=== PATIENT | female | born 1975 | race Two or more races ===

== ENCOUNTER 2024-12-12 19:15 | Inpatient (IN) | payer MEDICAID, OTHER ==
[~2024-12-12] VITALS: Ht 177.8 cm; Wt 92.1 kg
--- NOTE | 2024-12-12 19:20 | ED.PDOC ---
GI ASSESSMENT HPI Comments 49 y.o female coming from [facility], presents to the ED via EMS for a chief complaint of abdominal pain associated with nausea and vomiting that started this morning. Patient's report packet included a CTA with unremarkable results and EKG wnl. Patient was given Zofran, Morphone, Diludid, and a GI cocktail for symptoms during her hospital stay at [facility] (formerly [facility]). Patient was transported for higher level of care. EMS reports patient has been giving multiple different blood pressure medications at the hospital but pressure remains high with the last reading measuring 176/90. Patient reports similar abdominal pain one month ago in which she was seen at [facility] and diagnosed with an MA. Patient denies fever, chills, diarrhea, SOB. Patient does have a medical history of HTN and is compliant with medication intake. She reports quitting tobacco and alcohol one month ago s/p MA but is occasionally using marijuana. Time Seen by MD: 19:03 Reviewed Notes: Nurses Notes, Medications, Allergies Allergies: Coded Allergies: NO KNOWN ALLERGIES (Unverified , 12/12/24) Information Source: Patient, Emergency Med Personnel Mode of Arrival: EMS Timing: Hours Duration: Since onset Quality: Aching Vomitus: Hard Stool: Normal Severity: Moderate Recent: None Recent Hx of: None Pain Location: Diffuse Associated sign and symptoms: Nausea, Vomiting, Abdominal Pain Past Medical History PAST MEDICAL HISTORY: HTN Surgical History: Cholecystectomy, , Tubal Ligation SHOWCASE TRIMMER History: No Pertinent SHOWCASE TRIMMER History Family History Family History: Reviewed,noncontributory to illness Social History Smoker: Quit Less Than 1 Year, Cigarettes Alcohol: Denies ETOH Use Drugs: Marijuana Lives In: Home Constitutional: denies: chills, diaphoresis, fatigue, fever, malaise, sweats, weakness, others EENTM: denies: blurred vision, double vision, ear bleeding, ear discharge, ear drainage, ear pain, ear ringing, eye pain, eye redness, hearing loss, mouth pain, mouth swelling, nasal discharge, nose bleeding, nose congestion, nose pain, photophobia, tearing, throat pain, throat swelling, voice changes, others Respiratory: denies: cough, hemoptysis, orthopnea, SOB at rest, shortness of breath, SOB with excertion, stridor, wheezing, others Cardiovascular: denies: chest pain, dizzy spells, diaphoresis, Dyspnea on exertion, edema, irregular heart beat, left arm pain, lightheadedness, palpitations, PND, syncope, others Gastrointestinal: reports: abdominal pain, nausea, vomiting; denies: abdomen distended, blood streaked bowels, constipated, diarrhea, dysphagia, difficulty swallowing, hematemesis, melena, poor appetite, poor fluid intake, rectal bleeding, rectal pain, others Genitourinary: denies: abnormal vagina bleeding, burning, dyspareunia, dysuria, flank pain, frequency, hematuria, incontinence, pain, , vagina discharge, urgency, others Neurological: denies: dizziness, fainting, headache, left sided numbness, left sided weakness, numbness, paresthesia, pre-existing deficit, right sided numbness, right sided weakness, seizure, speech problems, tingling, tremors, weakness, others Musculoskeletal: denies: back pain, gout, joint pain, joint swelling, muscle pain, muscle stiffness, neck pain, others Integumetry: denies: bruises, change in color, change in hair/nails, dryness, laceration, lesions, lumps, rash, wounds, others Allergic/Immunocompromised: denies: Difficulty Healing, Frequent Infections, Hives, Itching, others Hematologic/Lymphatic: denies: anemia, blood clots, easy bleeding, easy bruising, swollen glands, others Endocrine: denies: excessive hunger, excessive sweating, excessive thirst, excessive urination, flushing, intolerance to cold, intolerance to heat, unexplained weight gain, unexplained weight loss, others Psychiatric: denies: anxiety, bipolar disorder, depression, hopeless, panic disorder, schizophrenia, sleepless, suicidal, others All Other Systems: Reviewed and Negative Physical Exam General Appearance: Moderate Distress HEENT: Normal ENT Inspection, Pharynx Normal, TMs Normal Neck: Full Range of Motion, Non-Tender, Normal, Normal Inspection Respiratory: Chest Non-Tender, Lungs Clear, No Accessory Muscle Use, No Respiratory Distress, Normal Breath Sounds Cardiovascular: No Edema, No JVD, No Murmur, No Gallop, Normal Peripheral Pulses, Regular Rate/Rhythm Breast Exam: Deferred Gastrointestinal: No Organomegaly, Non Tender, No Pulsatile Mass, Normal Bowel Sounds, Soft Genitalia: Deferred Pelvic: Deferred Rectal: Deferred Extremities: No calf tenderness, Normal capillary refill, Normal inspection, Normal range of motion, Non-tender, No pedal edema Musculoskeletal : Apperance: Normal Neurologic: Alert, cable operator II-XII nml as Tested, Motor Weakness, Normal Affect, Normal Mood, No Sensory Deficits Cerebellar Function: Normal Reflexes: Normal Skin: Dry, Normal Color, Warm Lymphatic: No Adenopathy EKG EKG : Pulse Rate (adult): 51 Cardiac Rhythm: NSR Was a procedure done? Was a procedure done?: No GI differential Dx Differential Diagnosis: Gastroenteritis, Inflammatory BD, Pancreatitis, Dehydration, Electrolyte Imbalance, Food Poisoning, , Bacterial, Viral X-Ray, Labs, Meds, VS Vital Signs Date Time Temp Pulse Resp B/P (MAP) Pulse Ox O2 Delivery O2 Flow Rate FiO2 12/12/24 20:51 192/84 12/12/24 20:46 183/88 12/12/24 20:41 187/88 12/12/24 20:40 56 20 187/88 12/12/24 20:36 179/95 12/12/24 20:11 55 20 181/96 12/12/24 19:46 51 12/12/24 19:44 99.9 55 18 176/90 (118) 97 99.9 12/12/24 19:42 51 12/12/24 19:40 96 Room Air* 0 21 12/12/24 19:39 99.9 55 14 195/107 (136) 96 99.9 Lab Test 12/12/24 19:36 Range/Units White Blood Count 8.4 4.4-10.8 10^3/uL Red Blood Count 4.30 4.0-5.20 10^6/uL Hemoglobin 13.6 12.2-16.2 g/dL Hematocrit 39.8 36.0-46.0 % Mean Corpuscular Volume 92.7 80.0-100.0 fL Mean Corpuscular Hemoglobin 31.8 28.0-32.0 pg Mean Corpuscular Hemoglobin Concent 34.3 32.0-36.0 g/dL Red Cell Distribution Width 13.8 11.8-14.3 % Platelet Count 292 140-450 10^3/uL Mean Platelet Volume 7.2 6.9-10.8 fL Neutrophils (%) (Auto) 88.4 H 37.0-80.0 % Lymphocytes (%) (Auto) 9.1 L 10.0-50.0 % Monocytes (%) (Auto) 2.1 0.0-12.0 % Eosinophils (%) (Auto) 0.0 0.0-7.0 % Basophils (%) (Auto) 0.4 0.0-2.0 % Neutrophils # (Auto) 7.4 1.6-8.6 10 ^3/uL Lymphocytes # (Auto) 0.8 0.4-5.4 10 ^3/uL Monocytes # (Auto) 0.2 0-1.3 10 ^3/uL Eosinophils # (Auto) 0 0-0.8 10 ^3/uL Basophils # (Auto) 0 0-0.2 10 ^3/uL Nucleated Red Blood Cells 0.0 % Sodium Level 138 136-145 mmol/L Potassium Level 2.9 L 3.5-5.1 mmol/L Chloride Level 105 98-107 mmol/L Carbon Dioxide Level 21 20-31 mmol/L Anion Gap 12 5-15 Blood Urea Nitrogen 12 9-23 mg/dL Creatinine 0.66 0.550-1.02 mg/dL Glomerular Filtration Rate Calc 106 >90 mL/min BUN/Creatinine Ratio 18.2 10.0-20.0 Serum Glucose 145 H 74-106 mg/dL Calcium Level 9.3 8.7-10.4 mg/dL Current Medications Medications (Trade) Dose Ordered Sig/Jose Antonio Route Start Time Stop Time Status Last Admin Ondansetron HCl (Zofran) 4 mg ONCE ONCE IV 12/12/24 19:45 12/12/24 19:46 DC 12/12/24 20:11 Morphine Sulfate 4 mg ONCE ONCE IV 12/12/24 20:00 12/12/24 20:01 DC 12/12/24 20:11 Nicardipine/ Sodium Chloride 200 ml @ 50 mls/hr Q4H IV 12/12/24 20:30 12/12/24 20:36 IV Hep-Lock was established The patient was given morphine 4 mg IV push for the pain The patient was given Zofran 4 mg IV push for the nausea The patient is hypertensive so was started on nicardipine as a drip The patient's CBC is within normal limits The chemistry panel shows a potassium of only 2.9 The patient is being given potassium p.o. as well as IV The patient is being admitted at this time The patient understands and agrees with the management Images Reviewed?: Images reviewed and evaluated by me Time of 1ST Reevaluation: 19:20 Reevaluation 1ST: Unchanged Patient Education/Counseling: Diagnosis, Treatment, Prognosis Family Education/Counseling: No Family Present SEPSIS Sepsis Screen Physician Orders Heplock Iv (12/12/24 19:20) Electrocardigram (12/12/24 19:20) Nicardipine Hcl In Sodium Chlo (Cardene (12/12/24 20:30) Vital Signs Date Time Temp Pulse Resp B/P (MAP) Pulse Ox O2 Delivery O2 Flow Rate FiO2 12/12/24 20:51 192/84 12/12/24 20:46 183/88 12/12/24 20:41 187/88 12/12/24 20:40 56 20 187/88 12/12/24 20:36 179/95 12/12/24 20:11 55 20 181/96 12/12/24 19:46 51 12/12/24 19:44 99.9 55 18 176/90 (118) 97 99.9 12/12/24 19:42 51 12/12/24 19:40 96 Room Air* 0 21 12/12/24 19:39 99.9 55 14 195/107 (136) 96 99.9 Laboratory Tests Test 12/12/24 19:36 White Blood Count 8.4 10^3/uL (4.4-10.8) Medications Medications Dose Ordered Sig/Jose Antonio Route Start Time Stop Time Status Last Admin Dose Admin Morphine Sulfate 4 mg ONCE ONCE IV 12/12/24 20:00 12/12/24 20:01 DC 12/12/24 20:11 Nicardipine/ Sodium Chloride 200 ml @ 50 mls/hr Q4H IV 12/12/24 20:30 12/12/24 20:36 Ondansetron HCl 4 mg ONCE ONCE IV 12/12/24 19:45 12/12/24 19:46 DC 12/12/24 20:11 Departure 1 Departure Time of Disposition: 20:57 Impression: Primary Impression: Hypertensive emergency Additional Impressions: Hypokalemia Abdominal pain of unknown etiology Disposition: ADMITTED INPATIENT Admit to: [facility] Condition: Fair Critical Care Note Critical Care Time?: Yes (45 min-critical care time only) Stability Stability form required: Yes Unstable for transfer: ICU, CCU, PCU, [facility] (Intensive VS monitoring), ED Physician Assesment (Clinical assesment) Heart Score Heart Score: Heart Score Response (Comments) Value History Moderate Suspicious 1 EKG Normal 0 Age 45-64 1 Risk Factors >3 or Hx ASHD 2 Troponin N/A 0 Total 4 I personally scribed for JESSENIA MEIDNA MD ([email or web address]) on 12/12/24 at 19:20. Electronically submitted by Radha Cash (Enigmatec). I personally scribed for JESSENIA MEDINA MD ([email or web address]) on 12/12/24 at 19:46. Electronically submitted by Radha Cash (Enigmatec). JESSENIA MEDINA MD Dec 12, 2024 19:20
[2024-12-12 19:40] VITALS: O2SAT 96
[2024-12-12 19:47] LABS: Hematocrit 39.8 % (36.0-46.0); Hemoglobin 13.6 g/dL (12.2-16.2); Mean Corpuscular Hemoglobin 31.8 pg (28.0-32.0); Mean Corpuscular Volume 92.7 fL (80.0-100.0); Nucleated Red Blood Cells % 0.0 %
[2024-12-12 19:56] LABS: Chloride 105 mmol/L (98-107); Sodium 138 mmol/L (136-145)
[2024-12-12 19:57] LABS: Anion Gap 12 (5-15); Carbon Dioxide 21 mmol/L (20-31); Potassium 2.9 mmol/L (3.5-5.1)
[2024-12-12 19:58] LABS: Calcium 9.3 mg/dL (8.7-10.4)
[2024-12-12 20:03] LABS: BUN/Creatinine Ratio 18.2 (10.0-20.0); Blood Urea Nitrogen 12 mg/dL (9-23); Glucose 145 mg/dL (74-106)
[2024-12-12] MEDS: MORPHINE SULFATE 4 MG/ML SYR/VIAL IV ONE (20:11)
[2024-12-12] MEDS: ONDANSETRON HCL 4 MG/2 ML VIAL IV ONE (20:11)
[2024-12-12] MEDS: NICARDIPINE HCL IN SODIUM CHLO 200 ML IV SCH (20:36)
[2024-12-12] MEDS: POTASSIUM CHL 20 Meq TABLET PO ONE (21:24)
--- NOTE | 2024-12-12 21:53 | DVHHP2 ---
History of Present Illness History of Present Illness Patient is 49 years old female with past medical history of hypertension, [place] 1.5 months before, history of substance abuse is a transfer from [facility] for higher level of care for the management of hypertensive emergency and further cardiac evaluation. As per patient she started having Epigastric abdominal pain today morning, gradual onset, 12/09, constant, no relieving factor, no radiation. pain was associated with the nausea and vomiting several times, no blood. Patient also endorsed diarrhea 6 times today, no blood. Cindi ent reported she had similar episode 1 month before and went to [facility] where she was diagnosed with [place], CAG was done, no significant finding as per patient. As per documentation from [facility] patients blood pressure on admission was 227/125, EKG revealed sinus bradycardia, lab review revealed troponin I within normal limit, BNP 725, CT abdomen pelvis revealed negative for aortic dissection or aortic aneurysm, 4 mm right renal calculi non obstructing, colonic diverticular disease, 4 mm right middle lobe subpleural nodule. Chest x-ray no acute cardiopulmonary disease.she was given labetalol twice and also hydralazine but with poor response. That is why she was transferred to [facility] for higher level of care and for further cardiac evaluation. Patient denied any chest pain or shortness of breath, fever, dysuria, acute joint redness or swelling. On arrival patient's blood pressure was 195/107, pulse 55, temperature 99.9, initial lab workup revealed neutrophil 88.4%, Troponin I 12> 17, BNP 400,hypokalemia with potassium 2.9, AST 83, ALT 72. EKG sinus rhythm. Past Medical History hypertension, [place] 3 months before, history of substance abuse Past Surgical History Appendectomy Family History None Past Social History His 3 of methamphetamine use, now denying all, lives alone house Review of Systems Review of Systems Allergy- NKDA Patient was seen today at the bedside. Cardiovascular- deny acute chest pain or shortness of breath or cough or palpitation Respiratory denies cough or short of breath or wheezing Musculoskeletal-denies acute joint swelling or tenderness or redness Neurological- denies acute dysarthria, dysphagia, change in vision Psychiatry- denies depression or SI or HI Skin- denies acute rash or purpura Allergies: Coded Allergies: NO KNOWN ALLERGIES (Unverified , 12/12/24) Medications Current Medications Medications Dose Ordered Sig/Jose Antonio Route Start Time Stop Time Status Last Admin Dose Admin Nicardipine/ Sodium Chloride 200 ml @ 50 mls/hr Q4H IV 12/12/24 20:30 12/12/24 20:36 50 MLS/HR Exam Vital Signs Vital Signs Date Time Temp Pulse Resp B/P (MAP) Pulse Ox O2 Delivery O2 Flow Rate FiO2 12/12/24 21:00 78 23 161/90 (113) 95 12/12/24 19:44 99.9 99.9 12/12/24 19:40 Room Air* 0 21 Exam General examination- awake, alert, oriented HEENT- PEERLA, no acute nasal discharge Cardiovascular- S1-S2 audible, rate and rhythm regular, no murmur Respiratory- CTAB, no wheeze or rhonchi Gastrointestinal-mild abdominal tenderness+, bowel sound+. Nondistended Musculoskeletal-no acute joint swelling or tenderness or redness Lower extremity- no leg edema Neurological- cranial nerves intact, no acute dysarthria or dysphagia Psychiatry- denies depression or SI or HI Skin- no acute rash or purpura Labs/Xrays Labs Test 12/12/24 19:36 Range/Units White Blood Count 8.4 4.4-10.8 10^3/uL Red Blood Count 4.30 4.0-5.20 10^6/uL Hemoglobin 13.6 12.2-16.2 g/dL Hematocrit 39.8 36.0-46.0 % Mean Corpuscular Volume 92.7 80.0-100.0 fL Mean Corpuscular Hemoglobin 31.8 28.0-32.0 pg Mean Corpuscular Hemoglobin Concent 34.3 32.0-36.0 g/dL Red Cell Distribution Width 13.8 11.8-14.3 % Platelet Count 292 140-450 10^3/uL Mean Platelet Volume 7.2 6.9-10.8 fL Neutrophils (%) (Auto) 88.4 H 37.0-80.0 % Lymphocytes (%) (Auto) 9.1 L 10.0-50.0 % Monocytes (%) (Auto) 2.1 0.0-12.0 % Eosinophils (%) (Auto) 0.0 0.0-7.0 % Basophils (%) (Auto) 0.4 0.0-2.0 % Neutrophils # (Auto) 7.4 1.6-8.6 10 ^3/uL Lymphocytes # (Auto) 0.8 0.4-5.4 10 ^3/uL Monocytes # (Auto) 0.2 0-1.3 10 ^3/uL Eosinophils # (Auto) 0 0-0.8 10 ^3/uL Basophils # (Auto) 0 0-0.2 10 ^3/uL Nucleated Red Blood Cells 0.0 % Sodium Level 138 136-145 mmol/L Potassium Level 2.9 L 3.5-5.1 mmol/L Chloride Level 105 98-107 mmol/L Carbon Dioxide Level 21 20-31 mmol/L Anion Gap 12 5-15 Blood Urea Nitrogen 12 9-23 mg/dL Creatinine 0.66 0.550-1.02 mg/dL Glomerular Filtration Rate Calc 106 >90 mL/min BUN/Creatinine Ratio 18.2 10.0-20.0 Serum Glucose 145 H 74-106 mg/dL Calcium Level 9.3 8.7-10.4 mg/dL SEPSIS Sepsis Screen Date sepsis recognized/suspect: Dec 12, 2024 Time Sepsis recognized/suspect: 1914 Recent Procedure: No On Antibiotic Therapy: No Respiratory Rate >20: No Heart Rate >90: No Temp<36 C (96.8 F) or >38.3 C: No SBP <90 or MAP <65 mmHG: No New Acute Mental Status Change: No Is the patient on CPAP, BIPAP,: No Physician Orders Heplock Iv (12/12/24 19:20) Electrocardigram (12/12/24 19:20) Nicardipine Hcl In Sodium Chlo (Cardene (12/12/24 20:30) Potassium Chl 20meq/100ml (12/12/24 21:00) Admit (12/12/24 21:50) Code Status (12/12/24 21:50) 0.9% Ns 1000 Ml (12/12/24 22:00) Enoxaparin Sodium (Lovenox) (12/13/24 10:00) Npo (Nothing By Mouth) Diet (12/13/24 Breakfast) Echo 2d Mode Cardiac Dop (12/12/24 21:50) Morphine Sulfate Injection (12/12/24 22:00) Nitroglycerin Sublingual (Ntrostat Subli (12/12/24 22:00) Morphine Sulfate Injection (12/12/24 22:00) Notify Of Changes From Base (12/12/24 21:50) Compound Machine Operator For 24 Hours (12/12/24 21:50) Complete Blood Count (12/13/24 04:00) Comprehensive Metabolic Panel (12/13/24 04:00) Vital Signs Date Time Temp Pulse Resp B/P (MAP) Pulse Ox O2 Delivery O2 Flow Rate FiO2 12/12/24 21:00 78 23 161/90 (113) 95 12/12/24 20:51 192/84 12/12/24 20:46 183/88 12/12/24 20:41 187/88 12/12/24 20:40 56 20 187/88 12/12/24 20:36 179/95 12/12/24 20:11 55 20 181/96 12/12/24 19:46 51 12/12/24 19:44 99.9 55 18 176/90 (118) 97 99.9 12/12/24 19:42 51 12/12/24 19:40 96 Room Air* 0 21 12/12/24 19:39 99.9 55 14 195/107 (136) 96 99.9 Laboratory Tests Test 12/12/24 19:36 White Blood Count 8.4 10^3/uL (4.4-10.8) Medications Medications Dose Ordered Sig/Jose Antonio Route Start Time Stop Time Status Last Admin Dose Admin Morphine Sulfate 4 mg ONCE ONCE IV 12/12/24 20:00 12/12/24 20:01 DC 12/12/24 20:11 4 MG Nicardipine/ Sodium Chloride 200 ml @ 50 mls/hr Q4H IV 12/12/24 20:30 12/12/24 20:36 50 MLS/HR Ondansetron HCl 4 mg ONCE ONCE IV 12/12/24 19:45 12/12/24 19:46 DC 12/12/24 20:11 4 MG Potassium Chloride 40 meq ONCE ONCE PO 12/12/24 21:00 12/12/24 21:05 DC 12/12/24 21:24 40 MEQ Assessment/Plan Assessment/Plan Assessment and plan #Hypertensive emergency -- continue nicardipine drip as prescribed -ordered losartan, hydralazine -ordered renal artery Doppler study - monitor vitals - BNP 400, troponin I within normal limit -pending echo 2D -pending cardiology consult # acute pulmonary edema likely due to hypertensive emergency -BNP 400 -pending echo 2D -holding Lasix for now due to hypokalemia -continue losartan 50 mg p.o. daily -continue hydralazine 25 mg p.o. b.i.d. -pending cardiology consult # Intractable abdominal pain with nausea and vomiting likely due to acute gastroenteritis, rule out acute pancreatitis --lipase within normal limit -CT abdomen and pelvis at [facility] today revealed 4 mm non obstructing right renal calculi, diverticulosis, -continue ceftriaxone 1 g IV daily and metronidazole 500 mg q.8h -pending stool for ova and parasite, stool bacterial culture, stool for WBC, C diff toxin -continue diphenhydramine PRN -continue IV normal saline as prescribed -monitor vitals #Suspected cannabinoids induced intractable nausea and vomiting -UDS positive for cannabinoids --continue diphenhydramine PRN -continue IV normal saline as prescribed -monitor vitals # hypokalemia -continue potassium supplement as prescribed -ordered magnesium rider iv -monitor BMP # nephrolithiasis -CT abdomen and pelvis revealed-4 mm right renal calculi non obstructing, colonic diverticular disease, -ordered Flomax 0.4 mg p.o. daily -continue pain medication as prescribed # sinus bradycardia -troponin I within normal limit, BNP 400 -avoid beta german -continue monitoring clinically and on telemetry # transaminitis -AST 83, ALT 72 -monitor liver function test # history of CAD- [place] -as per patient coronary angiogram was done, no significant finding had than hospital -continue aspirin 81 mg p.o. daily # 4 mm right middle lobe subpleural nodule-CT scan incidental finding -follow up with the primary care physician as outpatient # diverticulosis with the diverticulitis -avoid dehydration and constipation # history of substance abuse -UDS positive for cannabinoids -patient was counseled about the effect of substance abuse on health # obesity - patient was counseled about the effect of obesity on health, physical activity, weight reduction, healthy diet Diet- NPO PCP- as per patient she does not have a PCP Cardiology-patient could not mentioned the name of for Cardiology Goals of care, Code status full code ; discussed with >15 minutes PUD prophylaxis: Pantoprazole DVT prophylaxis: Lovenox Plan discussed with Dr. Merino , nursing staff, Total time spent on patient evaluation, chart review, assessment and plan, discussion discussion >35 minutes Plan discussed with: Patient, Other (RN) My Orders Orders - CHRIS BERNARD Procedure Category Date Status Time Admit ADMIT 12/12/24 Transmitted 21:50 Code Status CODE 12/12/24 Transmitted 21:50 0.9% Ns 1000 Ml PHA 12/12/24 Transmitted 22:00 Enoxaparin Sodium PHA 12/13/24 Transmitted (Lovenox) 10:00 Npo (Nothing By DIET 12/13/24 Transmitted Mouth) Diet Breakfast Echo 2d Mode Cardiac US 12/12/24 Transmitted DOP 21:50 Morphine Sulfate PHA 12/12/24 Transmitted Injection 22:00 Nitroglycerin PHA 12/12/24 Transmitted Sublingual (Ntrostat 22:00 Morphine Sulfate PHA 12/12/24 Transmitted Injection 22:00 Notify Of Changes ROSENDA 12/12/24 Transmitted From Base 21:50 Compound Machine Operator For ROSENDA 12/12/24 Transmitted 24 Hours 21:50 Complete Blood Count LAB 12/13/24 Verified 04:00 Comprehensive LAB 12/13/24 Verified Metabolic Panel 04:00 Date of Service: Dec 12, 2024 Billing Provider: TD MERINO MD Common Visit Codes: 98138-APEEYDS INP/OBS CARE (HIGH) Consultation Codes: 56678-XUKYAUFVH CONSULT <60MIN CHRIS BERNARD Dec 12, 2024 21:53
[2024-12-12] MEDS ORDERED: MORPHINE SULFATE INJ 2 MG/ml SYRG IV PRN (22:00)
[2024-12-12] MEDS ORDERED: NITROGLYCERIN 0.4 MG SL TAB SL PRN (22:00)
[2024-12-12] MEDS ORDERED: diphenhdrAMINE HCL 50 MG/1 ML VL IV PRN (22:00)
[2024-12-12] MEDS: SODIUM CHLORIDE 0.9% 1,000 ML IV SCH (22:32)
[2024-12-12] MEDS: POTASSIUM CHL 20MEQ/100ML 100 ML IV ONE (22:32)
[2024-12-12 22:41] LABS: Albumin 4.7 g/dL (3.2-4.8); Alkaline Phosphatase 73 U/L (46-116); Bilirubin, Direct 0.1 mg/dL (<0.3); Bilirubin, Total 0.4 mg/dL (0.2-1.0); Total Protein 7.3 g/dL (5.7-8.2)
[2024-12-12 22:43] LABS: Alanine Aminotransferase 72 U/L (7-40)
[2024-12-12] MEDS: PANTOPRAZOLE 40 MG/10 ML VIAL INJ IV ONE (22:47)
[2024-12-12] MEDS: MORPHINE SULFATE INJ 2 MG/ml SYRG IV PRN (22:50)
--- NOTE | 2024-12-12 22:51 | DVH ---
CHEST RADIOGRAPH Indication: PNA/CHF Technique: Single frontal view of the chest was obtained Comparison: None FINDINGS: Lines and Tubes: None Lungs: No focal consolidation. Pleura: No effusion. No pneumothorax. Cardiomediastinal contours: Unremarkable Bones: No acute osseous abnormality. IMPRESSION: 1. No acute cardiopulmonary disease.
[2024-12-12 23:01] LABS: Lipase 27 U/L (12-53)
[2024-12-12 23:43] LABS: Urine Protein, UAD Negative (Negative)
[2024-12-12 23:45] LABS: Chloride 104 mmol/L (98-107); Sodium 137 mmol/L (136-145)
[2024-12-12 23:46] LABS: Anion Gap 13 (5-15); Calcium 9.3 mg/dL (8.7-10.4); Carbon Dioxide 20 mmol/L (20-31)
[2024-12-12 23:47] LABS: Potassium 2.8 mmol/L (3.5-5.1)
[2024-12-12 23:51] LABS: BUN/Creatinine Ratio 14.9 (10.0-20.0); Blood Urea Nitrogen 10 mg/dL (9-23)
[2024-12-12 23:52] LABS: Glucose 147 mg/dL (74-106); Magnesium 1.6 mg/dL (1.6-2.6)
[2024-12-12 23:53] LABS: Barbiturate Scree,Urine Neg (NEGATIVE); Opiate Scree,Urine Neg (NEGATIVE)
[2024-12-12 23:57] LABS: Amphetamine Screen, Urine Neg (NEGATIVE); Benzodiazephine Screen, Urine Neg (NEGATIVE); Cannabinoid Screen, Urine Pos (NEGATIVE); Cocaine Screen, Urine Neg (NEGATIVE); Phencyclidine Screen, Urine Neg (NEGATIVE)
[2024-12-13] VITALS (65 sets, daily range): BP systolic 116–176; BP diastolic 67–102; PULSE 71–104; RESP 11–30; TEMP 98.2–98.9; O2SAT 92–97
[2024-12-13] MEDS: HYDROmorphone HCL 2 MG/ML VL/or syr IV ONE (00:01)
[2024-12-13] MEDS: diphenhdrAMINE HCL 50 MG/1 ML VL IV PRN (00:05)
[2024-12-13] MEDS: MAGNESIUM SULFATE 1GM/100ML 100 ML IV ONE ×3 (00:19→07:58)
[2024-12-13] MEDS: hydrALAZINE HCL 20 MG/ML VL IV PRN (01:07)
[2024-12-13] MEDS: POTASSIUM CHL 20MEQ/100ML 100 ML IV SCH ×2 (03:15→05:21)
[2024-12-13] MEDS: TAMSULOSIN HYDROCHLORIDE 0.4 MG CAP PO ONE ×2 (04:15→07:58)
[2024-12-13] MEDS ORDERED: MANNITOL FTV 25% 12.5 GM/50 ML 100 ML IV ONE (04:15)
[2024-12-13 04:18] LABS: Albumin 4.7 g/dL (3.2-4.8); Alkaline Phosphatase 70 U/L (46-116); Anion Gap 13 (5-15); BUN/Creatinine Ratio 10.0 (10.0-20.0); Bilirubin, Total 0.5 mg/dL (0.2-1.0); Calcium 9.7 mg/dL (8.7-10.4); Chloride 104 mmol/L (98-107); Magnesium 2.0 mg/dL (1.6-2.6); Total Protein 7.7 g/dL (5.7-8.2)
[2024-12-13 04:41] LABS: Alanine Aminotransferase 60 U/L (7-40); Blood Urea Nitrogen 7 mg/dL (9-23); Carbon Dioxide 18 mmol/L (20-31); Glucose 142 mg/dL (74-106); Potassium 2.7 mmol/L (3.5-5.1); Sodium 135 mmol/L (136-145)
[2024-12-13] MEDS: LOSARTAN POTASSIUM 25 MG TAB PO ONE (05:08)
[2024-12-13] MEDS: cefTRIAXone 1GM/50ML D5W 50 ML IV ONE (08:00)
[2024-12-13 08:50] LABS: Hematocrit 41.8 % (36.0-46.0); Hemoglobin 14.2 g/dL (12.2-16.2); Mean Corpuscular Hemoglobin 31.6 pg (28.0-32.0); Mean Corpuscular Volume 92.8 fL (80.0-100.0); Nucleated Red Blood Cells % 0.0 %
[2024-12-13 08:56] LABS: Chloride 105 mmol/L (98-107); Sodium 136 mmol/L (136-145)
[2024-12-13 08:57] LABS: Anion Gap 11 (5-15); Calcium 9.5 mg/dL (8.7-10.4)
[2024-12-13 08:58] LABS: Carbon Dioxide 20 mmol/L (20-31); Potassium 3.1 mmol/L (3.5-5.1)
[2024-12-13 09:02] LABS: BUN/Creatinine Ratio 12.5 (10.0-20.0); Blood Urea Nitrogen 9 mg/dL (9-23)
[2024-12-13 09:10] LABS: Glucose 140 mg/dL (74-106)
[2024-12-13] MEDS: PANTOPRAZOLE 40 MG/10 ML VIAL INJ IV SCH (09:37)
[2024-12-13] MEDS: POTASSIUM EFFERVESENT TAB 25 MEQ PO ONE (09:38)
[2024-12-13] MEDS: ENOXAPARIN SOD 40 MG/0.4 ML SYRINGE SC SCH (09:39)
--- NOTE | 2024-12-13 09:57 | ECG ---
[facility] Test Date: 2024-12-12 Test Time: 19:42:29 Pat Name: JEREMIAH DAS Department: er Room: 0296T Gender: F Amr Physician: : [id number] Requested By: JESSENIA MEDINA Order Number: [id number] Reading MD: Simone Tim Measurements Intervals [place] Rate: 51 P: 66 MA: 174 QRS: 48 QRSD: 108 T: 70 QT: 538 QTc: 496 Interpretive Statements Sinus rhythm Borderline prolonged QT interval Electronically Signed On 12-13-2024 19:32:40 PDT by Simone Tim Please click the below link to view image of tracing.
[2024-12-13] MEDS ORDERED: LOSARTAN POTASSIUM 25 MG TAB PO SCH ×2 (10:00)
--- NOTE | 2024-12-13 10:06 | DVHINCON2 ---
Date Seen: Dec 13, 2024 Referring Physician MD Gaby Reason for Consultation Hypertensive emergency History of Present Illness This is a 49-year-old female patient who presents to the emergency room with chief complaint of abdominal pain, nausea, and vomiting. The patient reports that symptoms began on the day of emergency room arrival. The patient initially went to [facility] because she lives in [facility]. She was transferred to this facility for higher level of care. Cardiology has been consulted at this time for hypertensive emergency. Initial twelve lead electrocardiogram reveals sinus bradycardia without any significant ST segment changes. At the time of assessment, the patient is in a normal sinus rhythm on continuous ticket dispatcher. The patient is now off of nicardipine drip. Significant past medical history includes hypertension, myocardial infarction, diverticulitis, and obesity. The patient reports that she was told that she had a myocardial infarction approximately 1.5 months ago at [facility]. She reports undergoing a coronary angiogram with left heart catheterization without any catheter based intervention. She states that she has been following up with a focus puller in [place]. Past Medical History Past medical history reviewed. No other significant than mentioned above. Past Surgical History Cholecystectomy Tubal ligation Family History Family history reviewed. Social History Patient has a 18 pack-year history, quit smoking approximately 1.5 months ago Patient admits to occasional marijuana use Patient admits to occasional alcohol use Allergies: Coded Allergies: NO KNOWN ALLERGIES (Unverified , 12/12/24) Home Meds Home medications reviewed. Current Medications Current Medications Medications (Trade) Dose Ordered Sig/Jose Antonio Route PRN Reason Start Time Stop Time Status Last Admin Nicardipine HCl 250 ml @ 50 mls/hr Q5H IV 12/12/24 19:45 12/12/24 20:24 DC Nicardipine/ Sodium Chloride 200 ml @ 50 mls/hr Q4H IV 12/12/24 20:30 12/13/24 07:51 Sodium Chloride 1,000 ml @ 120 mls/hr Q8H20M IV 12/12/24 22:00 12/13/24 06:39 Enoxaparin Sodium (Lovenox) 40 mg DAILY SC 12/13/24 10:00 12/13/24 09:39 Morphine Sulfate 2 mg Q4HPRN PRN IV SEVERE PAIN (7-10 PAIN SCALE) 12/12/24 22:00 12/13/24 06:54 Nitroglycerin (Ntrostat Sublingual) 0.4 mg Q5MINP PRN SL FOR CHEST PAIN 12/12/24 22:00 Morphine Sulfate 2 mg Q30M PRN IV FOR CHEST PAIN 12/12/24 22:00 Diphenhydramine HCl (Benadryl Injection) 25 mg Q6HP PRN IV FOR ITCHING 12/12/24 22:00 12/12/24 22:46 DC Pantoprazole Sodium (Protonix) 40 mg DAILY IV 12/13/24 10:00 12/13/24 09:37 Diphenhydramine HCl (Benadryl Injection) 25 mg Q6HP PRN IV NAUSEA OR VOMITING 12/12/24 22:45 12/13/24 00:05 Amlodipine Besylate (Norvasc Tablet) 10 mg DAILY PO 12/13/24 10:00 Cancel Hydralazine HCl (Apresoline Injection) 10 mg Q6HP PRN IV SBP>150 12/12/24 23:45 12/13/24 01:07 Potassium Chloride 100 ml @ 50 mls/hr Q2H IV 12/13/24 01:15 12/13/24 05:14 DC 12/13/24 03:15 Tamsulosin HCl (Flomax) 0.4 mg QPM PO 12/13/24 18:00 Potassium Chloride 100 ml @ 50 mls/hr Q2H IV 12/13/24 05:00 12/13/24 08:59 DC 12/13/24 08:12 Losartan Potassium (Cozaar Tablet) 25 mg DAILY PO 12/13/24 10:00 12/13/24 08:06 DC Amlodipine Besylate (Norvasc Tablet) 5 mg DAILY PO 12/13/24 10:00 12/13/24 08:09 DC Ceftriaxone Sodium 50 ml @ 100 mls/hr DAILY@09 IV 12/14/24 09:00 Metronidazole 100 ml @ 100 mls/hr Q8HR IV 12/13/24 14:00 Losartan Potassium (Cozaar Tablet) 50 mg DAILY PO 12/13/24 10:00 Hydralazine HCl (Apresoline Tablet) 25 mg Q12HR PO 12/13/24 10:00 Review of Systems Constitutional: No symptom reported Ears, Nose, & Throat: No symptom reported Eyes: No symptom reported Neurological: No symptoms reported Pulmonary/Respiratory: No symptoms reported Cardiovascular: No symptom reported Gastrointestinal: Abdominal pain, nausea, vomiting Genitourinary: No symptom reported Musculoskeletal: No symptom reported Skin: No symptom reported Psychiatric: No symptom reported Endocrine: No symptom reported Hematologic/Lymphatic: No symptom reported Vital Signs Vital Signs Date Time Temp Pulse Resp B/P (MAP) Pulse Ox O2 Delivery O2 Flow Rate FiO2 12/13/24 09:30 139/79 12/13/24 07:30 93 12/13/24 07:24 21 12/13/24 06:45 94 12/13/24 06:26 Room Air* 0 21 12/13/24 05:15 98.9 98.9 Physical Exam General Appearance: Cooperative. Well-developed. Well-nourished. No acute distress. Pulmonary/Respiratory: Clear, bilateral breaths sounds. Cardiovascular/Chest: Regular rate and rhythm. Peripheral Pulses: 2+ Radial (R). 2+ Radial (L). 2+ Pedal (R). 2+ Pedal (L) Abdominal Exam: Normal bowel sounds. Ankle Exam: Negative ankle edema Lower extremities: Negative lower extremity edema Neuro/Mental Status: A/OX4, coherent. Thoughts/Psych: Normal thought pattern. Appropriate mood and affect. Good judgment and insight. Appearance: No acute distress. Skin Exam: Normal inspection. Normal color. Warm and dry. Labs/Diagnostic Data Labs Test 12/13/24 08:35 12/13/24 03:09 12/13/24 02:09 12/12/24 23:30 Range/Units White Blood Count 12.0 #H 4.4-10.8 10^3/uL Red Blood Count 4.50 4.0-5.20 10^6/uL Hemoglobin 14.2 12.2-16.2 g/dL Hematocrit 41.8 36.0-46.0 % Mean Corpuscular Volume 92.8 80.0-100.0 fL Mean Corpuscular Hemoglobin 31.6 28.0-32.0 pg Mean Corpuscular Hemoglobin Concent 34.1 32.0-36.0 g/dL Red Cell Distribution Width 13.8 11.8-14.3 % Platelet Count 299 140-450 10^3/uL Mean Platelet Volume 7.1 6.9-10.8 fL Neutrophils (%) (Auto) 82.4 H 37.0-80.0 % Lymphocytes (%) (Auto) 11.4 10.0-50.0 % Monocytes (%) (Auto) 5.9 0.0-12.0 % Eosinophils (%) (Auto) 0.1 0.0-7.0 % Basophils (%) (Auto) 0.2 0.0-2.0 % Neutrophils # (Auto) 9.9 H 1.6-8.6 10 ^3/uL Lymphocytes # (Auto) 1.4 0.4-5.4 10 ^3/uL Monocytes # (Auto) 0.7 0-1.3 10 ^3/uL Eosinophils # (Auto) 0 0-0.8 10 ^3/uL Basophils # (Auto) 0 0-0.2 10 ^3/uL Nucleated Red Blood Cells 0.0 % Sodium Level 136 136-145 mmol/L Potassium Level 3.1 L 3.5-5.1 mmol/L Chloride Level 105 98-107 mmol/L Carbon Dioxide Level 20 20-31 mmol/L Anion Gap 11 5-15 Blood Urea Nitrogen 9 9-23 mg/dL Creatinine 0.72 0.550-1.02 mg/dL Glomerular Filtration Rate Calc 101 >90 mL/min BUN/Creatinine Ratio 12.5 10.0-20.0 Serum Glucose 140 H 74-106 mg/dL Hemoglobin A1c 5.1 <5.7 % A1C Calcium Level 9.5 8.7-10.4 mg/dL Magnesium Level 2.0 1.6-2.6 mg/dL Total Bilirubin 0.5 0.2-1.0 mg/dL Aspartate Amino Transferase (AST) 60 H 13-40 U/L Alanine Aminotransferase (ALT) 60 H 7-40 U/L Alkaline Phosphatase 70 46-116 U/L Total Protein 7.7 5.7-8.2 g/dL Albumin 4.7 3.2-4.8 g/dL Troponin I High Sensitivity 18 </=34 ng/L Urine Color Colorless Yellow Urine Clarity Clear Clear Urine pH 6.5 5.0-9.0 Urine Specific [place] 1.016 1.001-1.035 Urine Protein Negative Negative Urine Ketones 1+ H Negative Urine Blood Negative Negative /uL Urine Nitrite Negative Negative Urine Bilirubin Negative Negative Urine Urobilinogen Normal Negative mg/dL Urine Leukocyte Esterase Negative Negative /uL Urine RBC 2 0 - 4 /hpf Urine Microscopic WBC 3 0-5 /HPF Urine Squamous Epithelial Cells Few <5 /hpf Urine Bacteria None seen None Seen /hpf Urine Glucose Normal Normal mg/dL Urine Opiates Screen Neg NEGATIVE Urine Fentanyl Screen Neg NEGATIVE Urine Barbiturates Screen Neg NEGATIVE Urine Phencyclidine Screen Neg NEGATIVE Urine Amphetamines Screen Neg NEGATIVE Urine Benzodiazepines Screen Neg NEGATIVE Urine Cocaine Screen Neg NEGATIVE Urine Cannabinoids Screen Pos NEGATIVE Test 12/12/24 23:11 12/12/24 19:36 Range/Units Direct Bilirubin 0.1 <0.3 mg/dL B-Type Natriuretic Peptide 400.58 0-100 pg/mL Lipase 27 12-53 U/L Thyroid Stimulating Hormone (TSH) 0.43 L 0.55-4.78 uIU/mL Beta HCG, Quantitative 1.2 L 1.5-4.2 mIU/mL Plasma/Serum Blood Alcohol < 3.0 <10 mg/dL Assessment Hypertensive emergency Rule out structural heart disease Rule out renal artery stenosis History myocardial infarction Hypokalemia Transaminitis History of Diverticulitis Tobacco use Obesity Plan/Recommendation We will continue with the following plan/recommendations (Dr. Enrique): * Echocardiogram to evaluate cardiac function * Aggressive blood pressure control, up-titrate as tolerated * Renal ultrasound * Monitor and replete electrolytes as needed * Close Cardiac surveillance * Labs: Renin and aldosterone Thank you for allowing us to care for this patient. Please call with any questions or concerns. Critical care time spent: 44 minutes This medical document was created using an electronic medical record system with voice recognition software and computerized dictation system. Although this document has been carefully reviewed, there might still be some phonetic and typographical errors. Occasional wrong-word or ``sound-alike substitutions may have occurred due to the inherent limitations of voice recognition software. These areas are purely typographical due to imperfections of the software programs and do not reflect any compromise in the patient's medical care. Please read the chart carefully and recognize, using context, where these substitutions have occurred. Plan discussed with: Patient NYHA Physical activity limitations: NA Date of Service: Dec 13, 2024 Billing Provider: AYAH JOHNSON Cardiology Common Codes: [id number] INP/OBS CARE (High) Cardiology Consultation Codes: [id number] CONSULT <45MIN AYAH JOHNSON Dec 13, 2024 10:06
[2024-12-13 10:46] LABS: Free T3 2.43 pg/mL (2.3-4.2)
[2024-12-13 10:47] LABS: Free T4 (Free Thyroxine) 1.19 ng/dL (0.89-1.76)
[2024-12-13] MEDS: CARVEDILOL 3.125 MG TAB PO ONE (11:08)
--- NOTE | 2024-12-13 12:02 | DVH ---
RENAL ULTRASOUND History: Comparison: None Technique: Multiple real-time sonographic images of the kidney are obtained. Findings: Right kidney measures 11 cm. Left kidney measures 12.6 cm. No hydronephrosis seen. Aorta measures 1.9 x 1.9 cm. Peak systolic velocity 99 cm/sec. Right kidney peak systolic velocity 106 cm/sec. Resistive index 0.7. Renal aortic ratio 1.1. Left kidney peak systolic velocity 38 cm/sec. Resistive index 0.55. Renal abdominal aortic ratio 0.4. Bilaterally No evidence for parvus tardus waveform. Impression: No sonographic evidence for renal artery stenosis. If concern persists CT angiogram of the abdomen c an be obtained to evaluate.
[2024-12-13 12:19] LABS: Triglycerides 56 mg/dL (< 150)
[2024-12-13 12:20] LABS: Cholesterol 197 mg/dL (< 200); HDL Cholesterol 50 mg/dL (40-59)
--- NOTE | 2024-12-13 12:35 | DVHPN2 ---
Progress Note Date Seen: Dec 13, 2024 Medical Necessity Reason Pt with a Central, PICC or Fol: No Subjective Patient reports: No new complaints Review of Systems: HEENT:Normal, CVS:Normal, RESPIRATORY:Normal, GI:Normal, :Normal, MSK:Normal, NEURO:Normal Objective vital signs Vital Sign Date Time Temp Pulse Resp B/P (MAP) Pulse Ox O2 Delivery O2 Flow Rate FiO2 12/13/24 11:45 82 18 144/70 (94) 95 12/13/24 10:26 Room Air* 0 21 12/13/24 08:00 98.4 98.4 Total Intake and Output 12/12/24 12/12/24 12/13/24 14:59 22:59 06:59 Intake Total 1267.5 ml Balance 1267.5 ml medications Current Medications Medications Dose Ordered Sig/Jose Antonio Route Start Time Stop Time Status Last Admin Dose Admin Nicardipine/ Sodium Chloride 200 ml @ 50 mls/hr Q4H IV 12/12/24 20:30 12/13/24 07:51 100 MLS/HR Sodium Chloride 1,000 ml @ 120 mls/hr Q8H20M IV 12/12/24 22:00 12/13/24 06:39 120 MLS/HR Enoxaparin Sodium 40 mg DAILY SC 12/13/24 10:00 12/13/24 09:39 40 MG Morphine Sulfate 2 mg Q4HPRN PRN IV 12/12/24 22:00 12/13/24 11:09 2 MG Nitroglycerin 0.4 mg Q5MINP PRN SL 12/12/24 22:00 Morphine Sulfate 2 mg Q30M PRN IV 12/12/24 22:00 Pantoprazole Sodium 40 mg DAILY IV 12/13/24 10:00 12/13/24 09:37 40 MG Diphenhydramine HCl 25 mg Q6HP PRN IV 12/12/24 22:45 12/13/24 00:05 25 MG Amlodipine Besylate 10 mg DAILY PO 12/13/24 10:00 Cancel Tamsulosin HCl 0.4 mg QPM PO 12/13/24 18:00 Ceftriaxone Sodium 50 ml @ 100 mls/hr DAILY@09 IV 12/14/24 09:00 Metronidazole 100 ml @ 100 mls/hr Q8HR IV 12/13/24 14:00 Nifedipine 60 mg DAILY PO 12/14/24 10:00 Carvedilol 6.25 mg Q12HR PO 12/13/24 22:00 Examination: GENERAL:Normal, HEENT:Normal, NECK:Normal, LUNGS:Normal, CVS:Normal, ABDOMEN:Normal, MSK:Normal, SKIN:Normal, NEURO:Normal, :Normal laboratory and microbiology Laboratory Tests 12/13/24 08:35 Test 12/13/24 08:35 Range/Units Serum Glucose 140 H 74-106 mg/dL Problem List/Assessment/Plan Problem List/Assessment/Plan #1 hypertensive emergency: cont meds, weaned off nicardipine drip #2 acute systolic/diastolic heart failure: lasix #3 hypokalemia: replace #4 obesity #5 ?cad #6 h/o substance abuse #7 transaminitis Plan discussed with: Patient Critical Care Time (mins): 37 (critical care time excluding procedures is 37 mins) Date of Service: Dec 13, 2024 Billing Provider: GERARD FLORES MD Common Visit Codes: 87551-[id number] CARE 30-74 MIN GERARD FLORES MD Dec 13, 2024 12:35
[2024-12-13] MEDS: POTASSIUM CHL 20 Meq TABLET PO ONE (13:31)
[2024-12-13] MEDS: FUROSEMIDE 40 MG TAB PO ONE (13:32)
[2024-12-13 14:26] LABS: Hepatitis B Surface Antigen Negative (Negative)
[2024-12-13 15:04] LABS: Hepatitis C Antibody Negative (Negative)
[2024-12-13] MEDS: IBUPROFEN 400 MG TAB PO ONE (16:01)
[2024-12-13] MEDS ORDERED: hydrALAZINE HCL 20 MG/ML VL IV PRN (17:30)
[2024-12-13] MEDS ORDERED: TAMSULOSIN HYDROCHLORIDE 0.4 MG CAP PO SCH (18:00)
[2024-12-13] MEDS: POTASSIUM CHLORIDE 40 MEQ, LIDOCAINE 1% (LOCAL ANESTH.) 4 ML in SODIUM CHL 0.9% 250 ML IV ONE (18:46)
--- NOTE | 2024-12-13 19:49 | DVHSR ---
APPROVED REPORT EXAM: Two-dimensional and M-mode echocardiogram with Doppler and color Doppler. Blood Pressure: 150/85 mmHg INDICATION Hypertensive urgency History of AL RISK FACTORS Height: 5'10", Weight: 211 DIMENSIONS LVDd3.6 (3.8-5.7cm)LA (2D)3.8 (1.9-4.0cm)Aortic Root3.3 (2.0-3.7cm) LVDs2.5 (2.5-4.0cm)LA (MM) (1.9-4.0cm)Aortic Cusp Exc1.6 (1.5-2.0cm) EF (%) 60.0 (55-70%)Rt. Atrium3.7 (1.9-4.0cm)Asc. Aorta cm IVSd0.9 (0.7-1.1cm)RV (D) (1.8-2.4cm) PWd1.1 (0.7-1.1cm) Mitral Valve MitralMitral Stenosis E wave1.12m/sMV Mean GR.mmHg A wave1.08m/sMV Peak GR.mmHg E/A ratio1.02D MVAcm2 DECEL [id number] 1/2 Timems Aortic Valve Aortic ValveAortic Stenosis V11.42m/[place] Mean GR.10mmHg V22.25m/[place] Peak GR.20mmHg LVOT Diameter2.0 (1.8-2.4cm)Doppler AVA1.98cm2 Pulmonic Valve V21.62m/s Tricuspid Valve TR Velocity2.97m/s [id number] Other Information Technically limited study due to body habitus and patient position. Conclusion NORMAL LV EF AND IS 65% NORMAL VALVES MILD LVH AND MILD LV DIASTOLIC DYSFUNCTION NO EFFUSION NORMAL RV FUNCTION MILD PULMONARY HYPERTENSION
[2024-12-13] MEDS: CARVEDILOL 3.125 MG TAB PO SCH (21:22)
--- NOTE | 2024-12-13 21:47 | DVHINCON2 ---
Date Seen: Dec 13, 2024 Referring Physician MD Gaby Reason for Consultation Hypertensive emergency History of Present Illness This is a 49-year-old female with a PMH of hypertension, myocardial infarction, diverticulitis, and obesity patient who presented to the ED with c/o abdominal pain, nausea, and vomiting. The patient reports that symptoms began on the day of ED arrival. The patient initially went to [facility] because she lives [facility]. She was transferred to this facility for higher level of care. Cardiology has been consulted at this time for hypertensive emergency. Initial twelve lead electrocardiogram reveals sinus bradycardia without any si gnificant ST segment changes. At the time of assessment, the patient is in a normal sinus rhythm on continuous director of cardiac rehabilitation. The patient is now off of nicardipine drip. The patient reports that she was told that she had a myocardial infarction approximately 1.5 months ago at [facility]. She reports undergoing a coronary angiogram with left heart catheterization without any catheter based intervention. She states that she has been following up with a schedule supervisor in [place]. Past Medical History Past medical history reviewed. No other significant than mentioned above. Past Surgical History Cholecystectomy Tubal ligation Family History: Patient reports no known family medical history. Allergies: Coded Allergies: NO KNOWN ALLERGIES (Unverified , 12/12/24) Current Medications Current Medications Medications (Trade) Dose Ordered Sig/Jose Antonio Route PRN Reason Start Time Stop Time Status Last Admin Sodium Chloride 1,000 ml @ 120 mls/hr Q8H20M IV 12/12/24 22:00 12/13/24 12:31 DC 12/13/24 06:39 Enoxaparin Sodium (Lovenox) 40 mg DAILY SC 12/13/24 10:00 12/13/24 09:39 Morphine Sulfate 2 mg Q4HPRN PRN IV SEVERE PAIN (7-10 PAIN SCALE) 12/12/24 22:00 12/13/24 11:09 Nitroglycerin (Ntrostat Sublingual) 0.4 mg Q5MINP PRN SL FOR CHEST PAIN 12/12/24 22:00 Morphine Sulfate 2 mg Q30M PRN IV FOR CHEST PAIN 12/12/24 22:00 Diphenhydramine HCl (Benadryl Injection) 25 mg Q6HP PRN IV FOR ITCHING 12/12/24 22:00 12/12/24 22:46 DC Pantoprazole Sodium (Protonix) 40 mg DAILY IV 12/13/24 10:00 12/13/24 09:37 Diphenhydramine HCl (Benadryl Injection) 25 mg Q6HP PRN IV NAUSEA OR VOMITING 12/12/24 22:45 12/13/24 00:05 Amlodipine Besylate (Norvasc Tablet) 10 mg DAILY PO 12/13/24 10:00 Cancel Hydralazine HCl (Apresoline Injection) 10 mg Q6HP PRN IV SBP>150 12/12/24 23:45 12/13/24 10:06 DC 12/13/24 01:07 Potassium Chloride 100 ml @ 50 mls/hr Q2H IV 12/13/24 01:15 12/13/24 05:14 DC 12/13/24 03:15 Tamsulosin HCl (Flomax) 0.4 mg QPM PO 12/13/24 18:00 12/13/24 12:31 DC Potassium Chloride 100 ml @ 50 mls/hr Q2H IV 12/13/24 05:00 12/13/24 08:59 DC 12/13/24 08:12 Losartan Potassium (Cozaar Tablet) 25 mg DAILY PO 12/13/24 10:00 12/13/24 08:06 DC Amlodipine Besylate (Norvasc Tablet) 5 mg DAILY PO 12/13/24 10:00 12/13/24 08:09 DC Ceftriaxone Sodium 50 ml @ 100 mls/hr DAILY@09 IV 12/14/24 09:00 12/13/24 12:31 DC Metronidazole 100 ml @ 100 mls/hr Q8HR IV 12/13/24 14:00 12/13/24 12:31 DC Losartan Potassium (Cozaar Tablet) 50 mg DAILY PO 12/13/24 10:00 12/13/24 10:06 DC Hydralazine HCl (Apresoline Tablet) 25 mg Q12HR PO 12/13/24 10:00 12/13/24 10:43 DC Nifedipine (Procardia Xl (Time-Release)) 60 mg DAILY PO 12/14/24 10:00 Carvedilol (Coreg Tablet) 6.25 mg Q12HR PO 12/13/24 22:00 12/13/24 21:22 Hydralazine HCl (Apresoline Injection) 10 mg Q6HP PRN IV SBP>150 12/13/24 17:30 Review of Systems Constitutional: No symptom reported Ears, Nose, & Throat: No symptom reported Eyes: No symptom reported Neurological: No symptoms reported Pulmonary/Respiratory: No symptoms reported Cardiovascular: No symptom reported Gastrointestinal: Abdominal pain, nausea, vomiting Genitourinary: No symptom reported Musculoskeletal: No symptom reported Skin: No symptom reported Psychiatric: No symptom reported Endocrine: No symptom reported Hematologic/Lymphatic: No symptom reported Vital Signs Vital Signs Date Time Temp Pulse Resp B/P (MAP) Pulse Ox O2 Delivery O2 Flow Rate FiO2 12/13/24 21:22 95 116/80 12/13/24 21:00 98.2 20 97 98.2 12/13/24 15:55 Room Air* 0 21 Physical Exam GENERAL: Alert and oriented x 3. No acute distress. Obese. EYES: PERRL, EOMI. Anicteric. HENT: Moist mucous membranes. LUNGS: Clear to auscultation bilaterally. CARDIOVASCULAR: Regular rate and rhythm. ABDOMEN: Soft, non-tender and non-distended. EXTREMITIES: No edema. NEUROLOGIC: No focal neurological deficits. SKIN: Warm, dry. Labs/Diagnostic Data Labs Test 12/13/24 16:14 12/13/24 13:09 12/13/24 08:35 12/13/24 03:09 Range/Units Potassium Level 3.2 L 3.5-5.1 mmol/L Hepatitis A IgM Antibody Negative Hepatitis B Surface Antigen Negative Negative Hepatitis B Core IgM Antibody Negative Negative Hepatitis C Antibody Negative Negative White Blood Count 12.0 #H 4.4-10.8 10^3/uL Red Blood Count 4.50 4.0-5.20 10^6/uL Hemoglobin 14.2 12.2-16.2 g/dL Hematocrit 41.8 36.0-46.0 % Mean Corpuscular Volume 92.8 80.0-100.0 fL Mean Corpuscular Hemoglobin 31.6 28.0-32.0 pg Mean Corpuscular Hemoglobin Concent 34.1 32.0-36.0 g/dL Red Cell Distribution Width 13.8 11.8-14.3 % Platelet Count 299 140-450 10^3/uL Mean Platelet Volume 7.1 6.9-10.8 fL Neutrophils (%) (Auto) 82.4 H 37.0-80.0 % Lymphocytes (%) (Auto) 11.4 10.0-50.0 % Monocytes (%) (Auto) 5.9 0.0-12.0 % Eosinophils (%) (Auto) 0.1 0.0-7.0 % Basophils (%) (Auto) 0.2 0.0-2.0 % Neutrophils # (Auto) 9.9 H 1.6-8.6 10 ^3/uL Lymphocytes # (Auto) 1.4 0.4-5.4 10 ^3/uL Monocytes # (Auto) 0.7 0-1.3 10 ^3/uL Eosinophils # (Auto) 0 0-0.8 10 ^3/uL Basophils # (Auto) 0 0-0.2 10 ^3/uL Nucleated Red Blood Cells 0.0 % Sodium Level 136 136-145 mmol/L Chloride Level 105 98-107 mmol/L Carbon Dioxide Level 20 20-31 mmol/L Anion Gap 11 5-15 Blood Urea Nitrogen 9 9-23 mg/dL Creatinine 0.72 0.550-1.02 mg/dL Glomerular Filtration Rate Calc 101 >90 mL/min BUN/Creatinine Ratio 12.5 10.0-20.0 Serum Glucose 140 H 74-106 mg/dL Hemoglobin A1c 5.1 <5.7 % A1C Calcium Level 9.5 8.7-10.4 mg/dL Triglycerides Level 56 < 150 mg/dL Cholesterol Level 197 < 200 mg/dL LDL Cholesterol 141 H < 100 mg/dL HDL Cholesterol 50 40-59 mg/dL Magnesium Level 2.0 1.6-2.6 mg/dL Total Bilirubin 0.5 0.2-1.0 mg/dL Aspartate Amino Transferase (AST) 60 H 13-40 U/L Alanine Aminotransferase (ALT) 60 H 7-40 U/L Alkaline Phosphatase 70 46-116 U/L Total Protein 7.7 5.7-8.2 g/dL Albumin 4.7 3.2-4.8 g/dL Vitamin B12 Level 404 211-911 pg/mL Vitamin D 25-Hydroxy 31.3 30.0-100 ng/mL Folic Acid 28.80 >5.38 ng/mL Test 12/13/24 02:09 12/12/24 23:30 12/12/24 23:11 12/12/24 19:36 Range/Units Troponin I High Sensitivity 18 </=34 ng/L Urine Color Colorless Yellow Urine Clarity Clear Clear Urine pH 6.5 5.0-9.0 Urine Specific [place] 1.016 1.001-1.035 Urine Protein Negative Negative Urine Ketones 1+ H Negative Urine Blood Negative Negative /uL Urine Nitrite Negative Negative Urine Bilirubin Negative Negative Urine Urobilinogen Normal Negative mg/dL Urine Leukocyte Esterase Negative Negative /uL Urine RBC 2 0 - 4 /hpf Urine Microscopic WBC 3 0-5 /HPF Urine Squamous Epithelial Cells Few <5 /hpf Urine Bacteria None seen None Seen /hpf Urine Glucose Normal Normal mg/dL Urine Opiates Screen Neg NEGATIVE Urine Fentanyl Screen Neg NEGATIVE Urine Barbiturates Screen Neg NEGATIVE Urine Phencyclidine Screen Neg NEGATIVE Urine Amphetamines Screen Neg NEGATIVE Urine Benzodiazepines Screen Neg NEGATIVE Urine Cocaine Screen Neg NEGATIVE Urine Cannabinoids Screen Pos NEGATIVE Free Thyroxine (T4) Calculated 1.19 0.89-1.76 ng/dL Free Triiodothyronine (T3) pg/mL 2.43 2.3-4.2 pg/mL Direct Bilirubin 0.1 <0.3 mg/dL B-Type Natriuretic Peptide 400.58 0-100 pg/mL Lipase 27 12-53 U/L Thyroid Stimulating Hormone (TSH) 0.43 L 0.55-4.78 uIU/mL Beta HCG, Quantitative 1.2 L 1.5-4.2 mIU/mL Plasma/Serum Blood Alcohol < 3.0 <10 mg/dL Assessment Hypertensive emergency. Rule out structural heart disease. Rule out renal artery stenosis. History myocardial infarction. Hypokalemia. Transaminitis. History of Diverticulitis. Tobacco use. Obesity. Plan/Recommendation I agree with your ongoing assessment and care of plan. Patient has been seen by Kellen Oh NP on my behalf. We have discussed the plan with the patient. Echocardiogram to evaluate cardiac function. Aggressive blood pressure control, up-titrate as tolerated. Renal ultrasound. Monitor and replete electrolytes as needed. Close Cardiac surveillance. Labs: Renin and aldosterone. Additional plan as per the hospital course. Plan discussed with: Patient NYHA Physical activity limitations: NA Date of Service: Dec 13, 2024 Billing Provider: JAYY ANGULO MD Cardiology Common Codes: [id number] INP/OBS CARE (High) Cardiology Consultation Codes: [id number] CONSULT <45MIN JAYY ANGULO MD Dec 13, 2024 21:47
[2024-12-14] VITALS (9 sets, daily range): BP systolic 93–136; BP diastolic 56–95; PULSE 61–94; RESP 18–20; TEMP 98–98.9; O2SAT 96–98
[2024-12-14 04:22] LABS: Hematocrit 42.4 % (36.0-46.0); Hemoglobin 14.7 g/dL (12.2-16.2); Mean Corpuscular Hemoglobin 31.9 pg (28.0-32.0); Mean Corpuscular Volume 91.7 fL (80.0-100.0); Nucleated Red Blood Cells % 0.0 %
[2024-12-14 04:37] LABS: INR 1.07 (0.9-1.15); Partial Thromboplastin Time 26.1 SEC (24.5-34.5); Prothrombin Time 11.3 sec (9.3-11.8)
[2024-12-14 04:39] LABS: Chloride 105 mmol/L (98-107); Sodium 137 mmol/L (136-145)
[2024-12-14 04:40] LABS: Anion Gap 10 (5-15); Calcium 9.2 mg/dL (8.7-10.4); Carbon Dioxide 22 mmol/L (20-31)
[2024-12-14 04:45] LABS: BUN/Creatinine Ratio 17.1 (10.0-20.0); Blood Urea Nitrogen 12 mg/dL (9-23); Magnesium 1.9 mg/dL (1.6-2.6)
[2024-12-14 04:48] LABS: Glucose 111 mg/dL (74-106); Potassium 3.3 mmol/L (3.5-5.1)
[2024-12-14] MEDS ORDERED: cefTRIAXone 1GM/50ML D5W 50 ML IV SCH (09:00)
--- NOTE | 2024-12-14 11:31 | DVHPN2 ---
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 No cardiac complaints at time of assessment Objective vital signs Vital Sign Date Time Temp Pulse Resp B/P (MAP) Pulse Ox O2 Delivery O2 Flow Rate FiO2 12/14/24 09:45 130/80 12/14/24 09:44 87 12/14/24 09:00 98.5 18 97 98.5 12/13/24 20:00 Room Air* 0 21 Total Intake and Output 12/13/24 12/13/24 12/14/24 15:00 23:00 07:00 Intake Total 875 ml 180 ml Balance 875 ml 180 ml medications Current Medications Medications Dose Ordered Sig/Jose Antonio Route Start Time Stop Time Status Last Admin Dose Admin Enoxaparin Sodium 40 mg DAILY SC 12/13/24 10:00 12/14/24 09:45 40 MG Morphine Sulfate 2 mg Q4HPRN PRN IV 12/12/24 22:00 12/13/24 11:09 2 MG Nitroglycerin 0.4 mg Q5MINP PRN SL 12/12/24 22:00 Morphine Sulfate 2 mg Q30M PRN IV 12/12/24 22:00 Pantoprazole Sodium 40 mg DAILY IV 12/13/24 10:00 12/14/24 09:45 40 MG Diphenhydramine HCl 25 mg Q6HP PRN IV 12/12/24 22:45 12/13/24 00:05 25 MG Amlodipine Besylate 10 mg DAILY PO 12/13/24 10:00 Cancel Nifedipine 60 mg DAILY PO 12/14/24 10:00 12/14/24 09:45 60 MG Carvedilol 6.25 mg Q12HR PO 12/13/24 22:00 12/14/24 09:44 6.25 MG Hydralazine HCl 10 mg Q6HP PRN IV 12/13/24 17:30 Examination: GENERAL:Normal, LUNGS:Normal, CVS:Normal, NEURO:Normal laboratory and microbiology Laboratory Tests 12/14/24 03:50 Test 12/14/24 03:50 Range/Units Serum Glucose 111 H 74-106 mg/dL Problem List/Assessment/Plan Problem List/Assessment/Plan Hypertensive urgency, resolved Ruled out renal artery stenosis History myocardial infarction Pulmonary hypertension, mild degree Hypokalemia Transaminitis History of Diverticulitis Tobacco use Obesity Plan/Recommendation (Dr. Enrique): * Echocardiogram reveals EF 65%, RVSP 38 mmHg * Aggressive blood pressure control, up-titrate as tolerated * Renal ultrasound * Monitor and replete electrolytes as needed * Close Cardiac surveillance * Labs: Renin and aldosterone Blood pressures controlled today. Patient denies any cardiac symptoms at time of assessment. Continue medical management. Thank you for allowing us to care for this patient. Please call with any questions or concerns. This medical document was created using an electronic medical record system with voice recognition software and computerized dictation system. Although this document has been carefully reviewed, there might still be some phonetic and typographical errors. Occasional wrong-word or ``sound-alike substitutions may have occurred due to the inherent limitations of voice recognition software. These areas are purely typographical due to imperfections of the software programs and do not reflect any compromise in the patient's medical care. Please read the chart carefully and recognize, using context, where these substitutions have occurred. Plan discussed with: Patient Date of Service: Dec 14, 2024 Billing Provider: AYAH JOHNSON Common Visit Codes: [id number] INP/OBS CARE(HIGH) AYAH JOHNSON Dec 14, 2024 11:31
--- NOTE | 2024-12-14 12:27 | DVHPN2 ---
Progress Note Date Seen: Dec 14, 2024 Medical Necessity Reason Pt with a Central, PICC or Fol: No Subjective Patient reports: No new complaints Review of Systems: HEENT:Normal, CVS:Normal, RESPIRATORY:Normal, GI:Normal, :Normal, MSK:Normal, NEURO:Normal Objective vital signs Vital Sign Date Time Temp Pulse Resp B/P (MAP) Pulse Ox O2 Delivery O2 Flow Rate FiO2 12/14/24 09:45 130/80 12/14/24 09:44 87 12/14/24 09:00 98.5 18 97 98.5 12/13/24 20:00 Room Air* 0 21 Total Intake and Output 12/13/24 12/13/24 12/14/24 15:00 23:00 07:00 Intake Total 875 ml 180 ml Balance 875 ml 180 ml medications Current Medications Medications Dose Ordered Sig/Jose Antonio Route Start Time Stop Time Status Last Admin Dose Admin Enoxaparin Sodium 40 mg DAILY SC 12/13/24 10:00 12/14/24 09:45 40 MG Morphine Sulfate 2 mg Q4HPRN PRN IV 12/12/24 22:00 12/13/24 11:09 2 MG Nitroglycerin 0.4 mg Q5MINP PRN SL 12/12/24 22:00 Morphine Sulfate 2 mg Q30M PRN IV 12/12/24 22:00 Pantoprazole Sodium 40 mg DAILY IV 12/13/24 10:00 12/14/24 09:45 40 MG Diphenhydramine HCl 25 mg Q6HP PRN IV 12/12/24 22:45 12/13/24 00:05 25 MG Amlodipine Besylate 10 mg DAILY PO 12/13/24 10:00 Cancel Nifedipine 60 mg DAILY PO 12/14/24 10:00 12/14/24 09:45 60 MG Carvedilol 6.25 mg Q12HR PO 12/13/24 22:00 12/14/24 09:44 6.25 MG Hydralazine HCl 10 mg Q6HP PRN IV 12/13/24 17:30 Examination: GENERAL:Normal, HEENT:Normal, NECK:Normal, LUNGS:Normal, CVS:Normal, ABDOMEN:Normal, MSK:Normal, SKIN:Normal, NEURO:Normal, :Normal laboratory and microbiology Laboratory Tests 12/14/24 03:50 Test 12/14/24 03:50 Range/Units Serum Glucose 111 H 74-106 mg/dL Problem List/Assessment/Plan Problem List/Assessment/Plan #1 hypertensive emergency: cont meds, weaned off nicardipine drip #2 acute systolic/diastolic heart failure: lasix #3 hypokalemia: replace #4 obesity #5 ?cad #6 h/o substance abuse #7 transaminitis advance care planning- full code- time spent 18 mins Plan discussed with: Patient My Orders My Orders Orders - GERARD FLORES MD Procedure Category Date Status Time Clear Liq Diet DIET 12/13/24 Transmitted Lunch Transfer Orders XFER 12/13/24 Transmitted 12:26 Date of Service: Dec 14, 2024 Billing Provider: GERARD FLORES MD Common Visit Codes: [id number] INP/OBS CARE(HIGH) Secondary Visit Codes: [id number] CARE PLAN 30 MINUTES GERARD FLORES MD Dec 14, 2024 12:27
[2024-12-14] MEDS: POTASSIUM CHL 20 Meq TABLET PO ONE (13:24)
[2024-12-14] MEDS: IBUPROFEN 800 MG TAB PO ONE (13:25)
[2024-12-14] MEDS: IBUPROFEN 400 MG TAB PO ONE (21:44)
--- NOTE | 2024-12-14 22:19 | DVHPN2 ---
Consult Progress Note Date Seen: Dec 14, 2024 Subjective Other Systems: Patient was seen and evaluated in follow up. Blood pressures controlled today. K 3.3. Patient remains in normal sinus rhythm on surveillance monitor. No cardiac complaints at time of assessment Telemetry reviewed. Objective vital signs Vital Sign Date Time Temp Pulse Resp B/P (MAP) Pulse Ox O2 Delivery O2 Flow Rate FiO2 12/14/24 21:44 64 123/81 12/14/24 21:00 98.9 20 98 98.9 12/14/24 08:13 Room Air* 0 21 Total Intake and Output 12/13/24 12/13/24 12/14/24 15:00 23:00 07:00 Intake Total 875 ml 180 ml Balance 875 ml 180 ml medications Current Medications Medications Dose Ordered Sig/Jose Antonio Route Start Time Stop Time Status Last Admin Dose Admin Morphine Sulfate 2 mg Q4HPRN PRN IV 12/12/24 22:00 12/13/24 11:09 2 MG Nitroglycerin 0.4 mg Q5MINP PRN SL 12/12/24 22:00 Morphine Sulfate 2 mg Q30M PRN IV 12/12/24 22:00 Diphenhydramine HCl 25 mg Q6HP PRN IV 12/12/24 22:45 12/13/24 00:05 25 MG Amlodipine Besylate 10 mg DAILY PO 12/13/24 10:00 Cancel Nifedipine 60 mg DAILY PO 12/14/24 10:00 12/14/24 09:45 60 MG Carvedilol 6.25 mg Q12HR PO 12/13/24 22:00 12/14/24 21:44 6.25 MG Hydralazine HCl 10 mg Q6HP PRN IV 12/13/24 17:30 Pantoprazole Sodium 40 mg DAILY@0600 PO 12/15/24 06:00 Examination: GENERAL:Normal, HEENT:Normal, NECK:Normal, LUNGS:Normal, CVS:Normal, ABDOMEN:Normal, MSK:Normal, SKIN:Normal, NEURO:Normal laboratory and microbiology Laboratory Tests 12/14/24 03:50 Test 12/14/24 03:50 Range/Units Serum Glucose 111 H 74-106 mg/dL Problem List/Assessment/Plan Problem List/Assessment/Plan Hypertensive urgency, resolved. Ruled out renal artery stenosis. History myocardial infarction. Pulmonary hypertension, mild degree. Hypokalemia. Transaminitis. History of Diverticulitis. Tobacco use. Obesity. Plan/Recommendation (Dr. Angulo): Continued all current supportive medical care. Patient has been seen by Kellen Oh NP on my behalf. We have discussed the plan with the patient. Echocardiogram reveals EF 65%, RVSP 38 mmHg. Aggressive blood pressure control, up-titrate as tolerated. Renal ultrasound. Monitor and replete electrolytes as needed. Close Cardiac surveillance. Labs: Renin and aldosterone. Additional plan as per the hospital course. Plan discussed with: Patient Date of Service: Dec 14, 2024 Billing Provider: JAYY ANGULO MD Cardiology Common Codes: [id number] [facility] JAYY ANGULO MD Dec 14, 2024 22:19
[2024-12-15] VITALS (7 sets, daily range): BP systolic 106–138; BP diastolic 66–86; PULSE 56–69; RESP 19–22; TEMP 97.4–98.5; O2SAT 96–98
[2024-12-15] MEDS: PANTOPRAZOLE 40 MG TAB PO SCH (05:41)
[2024-12-15 06:54] LABS: Chloride 107 mmol/L (98-107)
[2024-12-15 06:55] LABS: Anion Gap 7 (5-15); Calcium 8.8 mg/dL (8.7-10.4); Carbon Dioxide 22 mmol/L (20-31)
[2024-12-15 06:56] LABS: Potassium 3.4 mmol/L (3.5-5.1); Sodium 136 mmol/L (136-145)
[2024-12-15 07:00] LABS: BUN/Creatinine Ratio 16.7 (10.0-20.0); Blood Urea Nitrogen 15 mg/dL (9-23); Glucose 96 mg/dL (74-106)
[2024-12-15] MEDS ORDERED: CARV6.2517 PO (11:23)
[2024-12-15] MEDS ORDERED: NIFE1TAB30 PO (11:23)
--- NOTE | 2024-12-15 14:36 | DVHDS ---
DATE OF DISCHARGE: 12/15/2024 HISTORY OF PRESENT ILLNESS: The patient is a 49-year-old lady who was admitted with history of elevated blood pressure and abdominal discomfort. The patient also had nausea and vomiting. The patient has history of substance abuse and hypertension. HOSPITAL COURSE: The patient had elevated blood pressure of 195/107 at the time of admission. The patient had a chest x-ray that showed no acute disease. The patient had renal artery Doppler that was negative for renal artery stenosis. Toxin was positive for cannabis. Serology was negative for hepatitis panel. The patient will now be discharged home to be on Coreg 6.25 mg b.i.d. along with nifedipine ER 60 mg daily. The patient had an echocardiogram that showed an ejection fraction of 65%. FINAL DIAGNOSES: * Hypertensive emergency. * Acute diastolic heart failure. * Hypokalemia. * Obesity. * History of substance abuse. * Transaminitis. Time spent in discharge planning and review of plan with the patient and nursing was 37 minutes. MD RADHA Aguilar/SENG/GEORGE TID: [id number] RECEIPT: [id number]
--- NOTE | 2024-12-15 17:15 | DVHPN2 ---
Progress Note - Dictate Date Seen: Dec 15, 2024 Medical Necessity Reason Pt with a Central, PICC or Fol: No Subjective Patient was seen and evaluated in follow up. No overnight events. Echocardiogram revealed an EF of 65%. Patient is cardiac stable for discharge. Telemetry reviewed. vital signs Vital Sign Date Time Temp Pulse Resp B/P (MAP) Pulse Ox O2 Delivery O2 Flow Rate FiO2 12/15/24 13:03 97.4 60 19 138/86 (103) 97 97.4 12/15/24 08:30 Room Air* 0 21 Total Intake and Output 12/14/24 12/14/24 12/15/24 15:00 23:00 07:00 Intake Total 900 ml 400 ml Balance 900 ml 400 ml medications Current Medications Medications Dose Ordered Sig/Jose Antonio Route Start Time Stop Time Status Last Admin Dose Admin Amlodipine Besylate 10 mg DAILY PO 12/13/24 10:00 Cancel objective GENERAL: Alert and oriented x 3. No acute distress. Obese. EYES: PERRL, EOMI. Anicteric. HENT: Moist mucous membranes. LUNGS: Clear to auscultation bilaterally. CARDIOVASCULAR: Regular rate and rhythm. ABDOMEN: Soft, non-tender and non-distended. EXTREMITIES: No edema. NEUROLOGIC: No focal neurological deficits. SKIN: Warm, dry. laboratory and microbiology Laboratory Tests 12/15/24 05:06 12/14/24 03:50 Test 12/15/24 05:06 Range/Units Serum Glucose 96 74-106 mg/dL Problem List Hypertensive urgency, resolved. Ruled out renal artery stenosis. History myocardial infarction. Pulmonary hypertension, mild degree. Hypokalemia. Transaminitis. History of Diverticulitis. Tobacco use. Obesity. Assessment/Plan Continued all current supportive medical care. GI prophylactics. Nifedipine. Coreg. Nitro SL. IV Hydralazine for SBP > 150. Morphine for pain management. Additional plan as per the hospital course. Plan discussed with: Patient JAYY ANGULO MD Dec 15, 2024 15:34
== END 2024-12-15 13:25 | disposition home or self-care (01) | DRG 199 ==
LOC: ER 19:15 → EDBD 19:15 → OVERFLOW 21:50 → TELE-WESTW 12-13 15:41
PROVIDERS: ADMIT Internal Medicine; ATTEND Internal Medicine
DX: I16.1 Hypertensive emergency (principal); I50.31 Acute diastolic (congestive) heart failure; I27.20 Pulmonary hypertension, unspecified; A04.9 Bacterial intestinal infection, unspecified; E66.9 Obesity, unspecified; I11.0 Hypertensive heart disease with heart failure; K57.32 Diverticulitis of large intestine without perforation or abscess without bleeding; E87.6 Hypokalemia; R00.1 Bradycardia, unspecified; R74.01 Elevation of levels of liver transaminase levels; N20.0 Calculus of kidney; Z68.29 Body mass index [BMI] 29.0-29.9, adult; Z87.891 Personal history of nicotine dependence; I25.2 Old myocardial infarction; Z79.899 Other long term (current) drug therapy; Z79.82 Long term (current) use of aspirin; Z90.49 Acquired absence of other specified parts of digestive tract
CPT/HCPCS: 36415; 71045; 80048; 80053; 80061; 80074; 80076; 80307; 80320; 81001; 82088; 82306; 82607; 82746; 83036; 83690; 83735; 83880; 84132; 84244; 84439; 84443; 84481; 84484; 84702; 85025; 85610; 85730; 93005; 93306; 93975; 96365; 96375; 99291; G0378; J2003; J2405; J2470; J3480